=== PATIENT | male | born 1995 | race Caucasian/White ===

== ENCOUNTER 2018-06-28 15:22 | Emergency (ER) | payer SELFPAY ==
[~2018-06-28] VITALS: Ht 172.7 cm; Wt 75.0 kg
[2018-06-28] MEDS ORDERED: SODIUM CHLORIDE 0.9% 1,000 ML IV ONE (15:47)
[2018-06-28] MEDS ORDERED: ONDANSETRON HCL 4MG/2ML INJ IV STA (15:47)
[2018-06-28] MEDS ORDERED: LORAZEPAM 2MG/ML CPJ IM ONE (16:00)
[2018-06-28] MEDS ORDERED: BACITRACIN ZINC OINT UDPKT TOP ONE (16:00)
[2018-06-28] MEDS ORDERED: TETANUS, DIPHTHERIA, PERTUSSIS VAC/PF 0.5ML (>7YR OLD) IM ONE (16:00)
[2018-06-28 17:33] LABS: BASOPHILS % 0.9 % (0.0-2.0); EOSINOPHILS % 0.7 % (0.0-5.0); HEMATOCRIT. 45.9 % (42.0-52.0); HEMOGLOBIN. 15.6 g/dL (14.0-18.0); LYMPHOCYTES % 24.1 % (20.0-50.0); MEAN CORPUSCULAR HEMOGLOBIN 29.2 pg (28.0-32.0); MEAN CORPUSCULAR VOLUME 85.8 fL (80.0-94.0); MEAN PLATELET VOLUME 7.5 fl (7.4-10.4); MONOCYTES % 6.6 % (2.0-8.0); NEUTROPHILS % 67.7 % (40.0-76.0); PLATELET 322 x1000/uL (130-400); RED BLOOD CELL COUNT 5.35 mill/uL (4.7-6.1); RED CELL DISTRIBUTION WIDTH 14.2 % (11.6-14.6)
[2018-06-28 17:37] LABS: CHLORIDE 106 mEq/L (98-107)
[2018-06-28 17:49] LABS: CREATINE KINASE 454 IU/L (39-308)
[2018-06-28 17:51] LABS: CREATINE KINASE MB FRACTION 6.8 ng/mL (0.5-3.6)
[2018-06-28 17:52] LABS: ETHANOL BLOOD 305 mg/dL
[2018-06-28 18:34] LABS: *AMPHETAMINES SCREEN URINE NEGATIVE (NEGATIVE); *BARBITURATES SCREEN URINE NEGATIVE (NEGATIVE); *BENZODIAZEPINES SCREEN URINE NEGATIVE (NEGATIVE); *COCAINE SCREEN URINE NEGATIVE (NEGATIVE)
[2018-06-28 18:35] LABS: CANNABINOID URINE SCREEN NEGATIVE (NEGATIVE); METHADONE URINE SCREEN NEGATIVE (NEGATIVE); OPIATES URINE SCREEN NEGATIVE (NEGATIVE)
[2018-06-28 18:36] LABS: PHENCYCLIDINE URINE SCREEN NEGATIVE (NEGATIVE)
[2018-06-28 19:07] VITALS: BP 121/78
== END 2018-06-28 19:28 | disposition home or self-care (01) ==
LOC: ER 15:22
DX: T51.0X1A Toxic effect of ethanol, accidental (unintentional), initial encounter (principal); S00.81XA Abrasion of other part of head, initial encounter; S40.211A Abrasion of right shoulder, initial encounter; G92 Toxic encephalopathy; X58.XXXA Exposure to other specified factors, initial encounter; Y93.89 Activity, other specified; Y92.520 Airport as the place of occurrence of the external cause
CPT/HCPCS: 36415; 80053; 80305; 80320; 82550; 82553; 84484; 85025; 90471; 90715; 93005; 96361; 96372; 96374; 99284; J2060; J2405; J7030; G0480